=== PATIENT | female | born 1990 | race Caucasian/White ===

== ENCOUNTER 2017-09-12 22:35 | Emergency (ER) | payer BC ==
[2017-09-12 22:39] VITALS: TEMP 36.3; Ht 165.1 cm
[2017-09-12] MEDS ORDERED: IBUPROFEN 600 MG TAB PO STA (22:46)
[2017-09-12] MEDS ORDERED: AMPH20TA2 PO (23:07)
[2017-09-12] MEDS ORDERED: BUPR-79 PO (23:08)
[2017-09-12] MEDS ORDERED: NORCO 5/325MG HOME PACK PO STA (23:26)
--- NOTE | 2017-09-12 23:28 | EMERGENCY ROOM VISIT NOTE ---
History First contact with patient: 22:41 Chief Complaint: ANKLE PAIN Stated Complaint: SWOLLEN RT ANKLE, HURTS TO WALK ON, TURNING COLOR History of Present Illness The patient is a 26 year old female who presents to the Emergency Room via private vehicle accompanied by mother with complaints of "swollen right ankle, hurts to walk on, turning color". The patient states that around 2 PM she was at home and sneezed while the top of the steps causing her to hyperplasia to flex her right foot and causing pain in the ankle. She fell and notes pain in the bilateral ankles but it is now localized to the right. She rates the overall pain as a 6/10. She denies chance of . Review of Systems A complete 6-point Review of Systems was discussed with the patient, with pertinent positives and negatives listed in the History of Present Illness. All remaining Review of Systems questions can be considered negative unless otherwise specified. Past Medical/Surgical History Noncontributory Family History Noncontributory Social History Smoking Status: Current Some Day Smoker Patient lives locally. Current/Historical Medications Scheduled Amphetamine-Dextroamphetamine 20MG (Adderall 20MG), 1 TAB PO BID Bupropion (Wellbutrin Sr), 150 MG PO DAILY Physical Exam Vital Signs Date Time Temp Pulse Resp B/P (MAP) Pulse Ox O2 Delivery O2 Flow Rate FiO2 09/12/17 22:39 36.3 101 20 120/81 100 Room Air Physical Exam VITAL SIGNS - Vital signs and nursing notes were reviewed. Stable. GENERAL -26-year-old female appearing her stated age who is in no acute distress. Communicates well with provider and answers questions appropriately. SKIN - Without rashes. Skin overlying the right ankle is intact. Slight edema noted to the lateral and medial aspect. There is a small abrasion noted over the left anterior EXTREMITIES - tenderness to palpation overlying the anterior and medial aspect of the right ankle. There is also minimal tenderness over the soft tissue of the left ankle. She is neurovascularly intact. Medical Decision & Procedures ER Provider Diagnostic Interpretation: 3 views of the right ankle were obtained. Read by myself and the attending physician to reveal no acute fracture or dislocation. Some soft tissue swelling is noted at the right anterior portion of the mortise. Medications Administered Medications (Trade) Dose Ordered Sig/Leonard Route Start Time Stop Time Status Last Admin Dose Admin Ibuprofen (Motrin Tab) 600 mg NOW STAT PO 09/12/17 22:46 09/12/17 22:48 DC 09/12/17 23:00 600 MG Medical Decision Patient was seen and evaluated as above. She presents to us today status post fall. She presents with right ankle pain. She was offered x-ray of the left ankle and notes she takes it is okay but prefers one of the right. This was performed. Results as above. This was read by myself and the attending physician to reveal no acute fracture or dislocation. Small amount of swelling anterior to the right ankle mortise. She was given a gel ankle splint, crutches and Motrin. She was given a home pack of Novice for pain. She was educated upon management, educated upon worrisome symptoms which to return, had worsened in spite of discharge, and was discharged home in good condition. She was given her Adacel immunization. In the evaluation and treatment of this patient, the following differential diagnoses were considered: Ankle Fracture, Ankle Sprain, Distal Fibula Fracture , Distal Tibia Fracture, Foot Fracture, [place]uve Fracture. Impression Primary Impression: Right ankle pain Departure Information Dispostion Home / Self-Care Condition GOOD Referrals No Doctor, Assigned (PCP) Navjot Melvin M.D. Patient Instructions My [facility] Additional Instructions You have been treated in the Emergency Department for a Right Ankle injury. You have been given a short supply of NORCO to be used for pain control. This is a narcotic medication. You cannot drive or consume alcohol while on this medicine. This medicine should only be used for pain that cannot be controlled with [id number] pain medicines. Please do not take tylenol or acetaminophen with this medication. For pain control, you can use the following aotr-hbo-[id number] medicines (if >12 yo): - Regular strength (325mg/tab) Tylenol (acetaminophen) 2 tabs every 4-6 hours as needed. Do not exceed 12 tablets in a 24 hour period. Avoid taking more than 3 grams (3000 mg) of Tylenol per day. This includes any other sources of acetaminophen you may take on a regular basis. Please be careful with the NORCO. - Regular strength (200 mg/tab) Advil (ibuprofen) 1-2 tabs every 4-6 hours as needed. Do not exceed a dose of 3200 mg per day. If this is a recent injury (<24 hrs), ice can be applied to the area of pain for the first 3 days to help decrease pain and inflammation. You have been provided the number for an Orthopaedic Surgeon. You should call this number as soon as possible to establish a follow-up visit from today's Emergency Department visit. Keep the ankle brace/splint in place until cleared by Orthopedics if pain persists (Dr. Melvin). Use the crutches you have been provided to keep ALL weight off of the ankle until weight bearing is tolerable. Return to the Emergency Department if your current symptoms worsen despite treatment course outlined above, or if you develop any of the following symptoms : intractable pain despite aforementioned treatment course or new onset of numbness or tingling of the foot.
[2017-09-12 23:40] VITALS: BP 129/64; PULSE 93; O2SAT 99
[2017-09-12] MEDS ORDERED: DIPHTHERIA/TETANUS/PERTUSSIS 0.5 ML SYR/VIAL IM. ONE (23:45)
--- NOTE | 2017-09-13 06:39 | DIAGNOSTIC IMAGING REPORT ---
R ANKLE MIN 3 VIEWS ROUTINE CLINICAL HISTORY: Fall, R ankle pain trauma. Pain. COMPARISON: None. DISCUSSION: The bones and joint spaces appear intact. There is no evidence of fracture, dislocation or bony disease. There is no evidence for soft tissue swelling. IMPRESSION: Negative study. The above report was generated using voice recognition software. It may contain grammatical, syntax or spelling errors. Electronically signed by: Malik Smith M.D. 09/13/2017 6:38 AM Dictated Date/Time: 09/13/2017 6:31 AM
== END 2017-09-12 23:49 | disposition home or self-care (01) ==
LOC: C.EDB 22:36
DX: M25.571 Pain in right ankle and joints of right foot (principal); X50.1XXA Overexertion from prolonged static or awkward postures, initial encounter; Y92.018 Other place in single-family (private) house as the place of occurrence of the external cause; F17.210 Nicotine dependence, cigarettes, uncomplicated; Z79.899 Other long term (current) drug therapy